=== PATIENT | female | born 1985 | race Two or more races ===

== ENCOUNTER 2016-05-01 11:31 | Day surgery (SDC) | payer OTHER ==
[~2016-05-01] VITALS: Ht 172.7 cm; Wt 79.0 kg
[~2016-05-01 11:31] MED LIST: CIPRO500 MG PO; IBUPROFEN800 MG PO; MIRENA52 MG IY; MOTRIN IB200 MG PO; Motrin PO; PRENATAL TABLE1 EAC3 PO; Tylenol Extra Streng PO
[2016-05-01 12:08] VITALS: BP 109/76
[2016-05-01] MEDS ORDERED: PERCOCET 5/31 TABLET PO (13:56)
[2016-05-01] MEDS ORDERED: COLACE100 MG PO (13:56)
[2016-05-01 15:50] VITALS: BP 128/76
[2016-05-01 16:56] VITALS: BP 122/77
[2016-05-01 18:06] VITALS: BP 123/89
== END 2016-05-01 18:42 | disposition home or self-care (01) ==
LOC: SDC 11:31
PROC: 0FT44ZZ Resection of Gallbladder, Percutaneous Endoscopic Approach (ICD-10-PCS; principal; 2016-05-01)
DX: K80.10 Calculus of gallbladder with chronic cholecystitis without obstruction (principal); E07.9 Disorder of thyroid, unspecified
CPT/HCPCS: 88304; J0131; J0690; J1100; J1170; J1885; J2250; J2405; J2710; J3010

== ENCOUNTER 2017-10-30 08:27 | Emergency (ER) | payer OTHER ==
[~2017-10-30] VITALS: Ht 170.2 cm; Wt 81.1 kg
[~2017-10-30 08:27] MED LIST changes: +COLACE100 MG PO; +PERCOCET 5/31 TABLET PO
[2017-10-30 09:24] LABS: APPEARANCE CLEAR ((CLEAR)); BILIRUBIN NEGATIVE; BLOOD NEGATIVE; COLOR YELLOW ((YELLOW)); GLUCOSE (STRIP) NEGATIVE; KETONES NEGATIVE; LEUKOCYTES TRACE; NITRITE NEGATIVE; PROTEIN (STRIP) NEGATIVE; SPECIFIC GRAVITY 1.017 (1.000-1.030); UROBILINOGEN 0.2 MG/DL (0.2-1.0)
[2017-10-30 09:30] LABS: BACTERIA RARE /HPF; EPITHELIAL CELLS RARE /HPF; MUCUS TRACE /LPF; RED BLOOD CELLS 0-5 /HPF (0-5); UCUL ADDED? YES
[2017-10-30] MEDS ORDERED: PERCOCET 5/31 TABLET PO (09:47)
[2017-10-30] MEDS ORDERED: SKELAXIN800 MG PO (09:47)
[2017-10-30 10:40] VITALS: BP 125/81
== END 2017-10-30 10:40 | disposition home or self-care (01) ==
LOC: EME 08:27
PROVIDERS: Physician Assistant
DX: M62.830 Muscle spasm of back (principal); Z97.5 Presence of (intrauterine) contraceptive device; Z90.49 Acquired absence of other specified parts of digestive tract; Z88.6 Allergy status to analgesic agent; Z88.5 Allergy status to narcotic agent
CPT/HCPCS: 81003; 81025; 87077; 87086; 87186

== ENCOUNTER 2017-11-02 08:54 | Emergency (ER) | payer OTHER ==
[~2017-11-02] VITALS: Ht 170.2 cm; Wt 79.0 kg
[~2017-11-02 08:54] MED LIST changes: +SKELAXIN800 MG PO
[2017-11-02 09:40] LABS: APPEARANCE SL.HAZY ((CLEAR)); BILIRUBIN NEGATIVE; BLOOD MODERATE; COLOR YELLOW ((YELLOW)); GLUCOSE (STRIP) NEGATIVE; KETONES NEGATIVE; LEUKOCYTES LARGE; NITRITE NEGATIVE; PROTEIN (STRIP) 30; SPECIFIC GRAVITY 1.012 (1.000-1.030); UROBILINOGEN 0.2 MG/DL (0.2-1.0)
[2017-11-02] MEDS ORDERED: LEVAQUIN750 MG PO (10:00)
[2017-11-02 10:07] LABS: EPITHELIAL CELLS 1+ /HPF; RED BLOOD CELLS 15-20 /HPF (0-5); WHITE BLOOD CELLS TNTC /HPF (0-5)
[2017-11-02] MEDS ORDERED: ULTRAM50 MG PO (10:08)
[2017-11-02 10:09] LABS: BACTERIA 1+ /HPF; MUCUS NONE SEEN /LPF; UCUL ADDED? YES
[2017-11-02 10:20] VITALS: BP 115/65
== END 2017-11-02 10:38 | disposition home or self-care (01) ==
LOC: EME 08:54
PROVIDERS: Emergency Medicine
DX: N12 Tubulo-interstitial nephritis, not specified as acute or chronic (principal); N39.0 Urinary tract infection, site not specified; B96.20 Unspecified Escherichia coli [E. coli] as the cause of diseases classified elsewhere; Z97.5 Presence of (intrauterine) contraceptive device; Z90.49 Acquired absence of other specified parts of digestive tract; Z88.5 Allergy status to narcotic agent
CPT/HCPCS: 81003; 87077; 87086; 87186; 99281; 99284